=== PATIENT | female | born 1990 ===

== ENCOUNTER 2024-09-24 08:00 | Inpatient (IN) | payer OTHER ==
[~2024-09-24] VITALS: Ht 157.5 cm; Wt 2.7 kg
[2024-09-24 10:19] LABS: HEMATOCRIT 34.3 % (36.0-45.00); HEMOGLOBIN 11.1 g/dL (12.0-15.00); MEAN CELL VOLUME 83.3 fL (80.00-100.00); MEAN CORPUSCULAR HGB CONC 32.4 g/dl (32.0-36.0); PLATELET COUNT 258 K/uL (150-450); RED BLOOD COUNT 4.12 M/uL (4.00-6.00); RED CELL DISTRIBUTION WIDTH 15.7 % (11.5-14.5)
[2024-09-24 10:26] LABS: PH,URINE 6.5 (5.0-8.0); URINE APPEARANCE Clear; URINE BILIRRUBIN Negative (NEGATIVE); URINE BLOOD Negative; URINE COLOR Yellow; URINE GLUCOSE Negative (NEGATIVE); URINE KETONE Trace (NEGATIVE); URINE LEUKOCYTE Negative; URINE NITRATE Negative; URINE PROTEIN Trace (NEGATIVE)
[2024-09-24 10:29] LABS: URINE BACTERIA 969.3 uL (0.0-1933); URINE EPITHELIAL CELLS 44.9 uL (0.0-38.8); URINE RBC 3.6 uL (0.0-20.8); URINE WBC 13.4 uL (0.0-23.2)
[2024-09-24 10:32] LABS: URINE CAST 0.58 uL (0.0-1.40)
[2024-09-24 10:49] LABS: INR 0.94; PARTIAL THROMBOPLASTIN TIME 27.6 SECONDS (22.0-34.0); PROTHROMBIN TIME 10.3 SECONDS (9.0-11.5)
[2024-09-24 11:30] LABS: ALBUMIN 2.4 gm/dL (3.4-5.0); BILIRUBIN TOTAL 0.27 mg/dL (0.3-1.2); CALCIUM 9.1 mg/dL (8.5-10.1); CREATININE SERUM 0.65 mg/dL (0.55-1.02); GFR 105.63; GLOBULINA 4.3 G/DL (2.4-3.5); POTASSIUM 3.95 mEq/L (3.5-5.1); TOTAL PROTEIN 6.7 gm/dL (6.4-8.2)
[2024-10-08 05:17] VITALS: BP 111/80
[2024-10-08] MEDS ORDERED: TYLENOL325 MG PO (05:32)
[2024-10-08] MEDS ORDERED: PRENATAL CAPLE1 EAC1 (05:32)
[2024-10-08] MEDS ORDERED: OXYTOCIN 10 UNITS/ML VIAL ONE (06:57)
[2024-10-08] MEDS ORDERED: CEFAZOLIN SODIUM 1,000 MG VIAL ONE ×2 (06:57→12:47)
[2024-10-08] MEDS ORDERED: ERYTHROMYCIN BASE OPHT 1GM EACH TUBE OP ONE (06:58)
[2024-10-08] MEDS ORDERED: PROMETHAZINE HCL 50 MG/ML AMPUL IM PRN (09:00)
[2024-10-08] MEDS ORDERED: MEPERIDINE HCL/PF 50 MG/ML VIAL IM PRN (09:00)
[2024-10-08] MEDS ORDERED: RINGERS SOLUTION,LACTATED 1,000 ML IV SCH (09:00)
[2024-10-08] MEDS ORDERED: PROMETHAZINE HCL 50 MG/ML AMPUL IM ONE (11:49)
[2024-10-08 13:13] VITALS: BP 114/76
[2024-10-08] MEDS ORDERED: CEFAZOLIN SODIUM 1,000 MG VIAL IV SCH (14:00)
[2024-10-08 15:30] VITALS: BP 114/74
[2024-10-08 20:17] VITALS: BP 110/75
[2024-10-09] VITALS: BP 114/73
[2024-10-09 01:25] LABS: HEMATOCRIT 29.2 % (36.0-45.00); HEMOGLOBIN 9.7 g/dL (12.0-15.00); MEAN CORPUSCULAR HEMOGLOBIN 27.7 pg (27.00-32.0); MEAN CORPUSCULAR HGB CONC 33.4 g/dl (32.0-36.0); PLATELET COUNT 214 K/uL (150-450); RED BLOOD COUNT 3.51 M/uL (4.00-6.00)
[2024-10-09 07:36] VITALS: BP 106/69
[2024-10-09] MEDS ORDERED: IBUprofen 800 MG TABLET PO PRN (07:45)
[2024-10-09] MEDS ORDERED: SIMETHICONE 125 MG CAPSULE PO SCH (09:00)
[2024-10-09] MEDS ORDERED: DOCUSATE SODIUM 100MG CAP PO SCH (09:00)
[2024-10-09 15:57] VITALS: BP 104/66
[2024-10-10] VITALS: BP 108/74
[2024-10-10 08:58] VITALS: BP 116/76
[2024-10-10 16:12] VITALS: BP 110/74
[2024-10-10 23:17] VITALS: BP 104/67
[2024-10-11 07:49] VITALS: BP 109/73
[2024-10-11] MEDS ORDERED: IBUPROFEN800 MG PO (08:38)
== END 2024-10-11 11:39 | disposition home or self-care (01) | DRG 785 ==
LOC: OB/GYN 10-01 07:00 → O/R 10-08 05:00 → OB/GYN 10-08 11:27
PROVIDERS: ADMIT Specialist; ATTEND Specialist
PROC: 0UB70ZZ Excision of Bilateral Fallopian Tubes, Open Approach (ICD-10-PCS; 2024-10-08)
PROC: 4A1HXCZ Monitoring of Products of Conception, Cardiac Rate, External Approach (ICD-10-PCS; 2024-10-08)
PROC: 10D00Z1 Extraction of Products of Conception, Low, Open Approach (ICD-10-PCS; principal; 2024-10-08 07:00)
DX: O34.211 Maternal care for low transverse scar from previous cesarean delivery (principal); Z3A.39 39 weeks gestation of pregnancy; Z37.0 Single live birth; Z30.2 Encounter for sterilization